=== PATIENT | female | born 1970 | race Caucasian/White ===

== ENCOUNTER 2017-06-29 14:18 | Emergency (ER) | payer BC ==
--- NOTE | 2017-06-29 15:37 | UC ---
Respiratory Complaint HPI - HPI Summary HPI Summary: 47 yo female ill for about 2 days with cough/runny nose/sore throat and headache myalgias throat pain the worse symptoms no cp or sob no n/v/d - History of Current Complaint Chief Complaint: UCRespiratory Stated Complaint: SORE THROAT EAR PAIN NAUSEA HEADACHE Time Seen by Provider: 06/29/17 15:27 Hx Obtained From: Patient Hx Last Menstrual Period: IUD Onset/Duration: Gradual Onset, Lasting Days Timing: Constant Severity Initially: Moderate Severity Currently: Moderate Pain Intensity: 5 Pain Scale Used: 0-10 Numeric Character: Cough: Nonproductive Associated Signs And Symptoms: Positive: Fever, Chills, Nasal Congestion - Allergies/Home Medications Allergies/Adverse Reactions: Allergies Allergy/AdvReac Type Severity Reaction Status Date / Time No Known Allergies Allergy Verified 06/29/17 14:40 Home Medications: Home Medications Albuterol HFA INHALER* [Ventolin HFA Inhaler*] 1 puff INH Q4H PRN 06/29/17 [ History Confirmed 06/29/17] Dextromethorphan-Phenylephrine [Daytime Cold & Flu Relief 10-5-325 mg] 1 cap PO Q8HR PRN 06/29/17 [History Confirmed 06/29/17] [id number]-[id number] [Nyquil Severe Cold/Flu 5-6.25-10-325 mg/15Ml] 1 liq PO QPM PRN 06/29/17 [History Confirmed 06/29/17] Venlafaxine ER (NF) [Effexor ER (NF)] 150 mg PO DAILY 06/29/17 [History Confirmed 06/29/17] PMH/Surg Hx/FS Hx/Imm Hx Previously Healthy: Yes - Surgical History Surgical History: Yes Surgery Procedure, Year, and Place: neck surgery 2007 - Family History Known Family History: Negative: Cardiac Disease, Hypertension, Diabetes - Social History Alcohol Use: Occasionally Substance Use Type: None Smoking Status (MU): Never Smoked Tobacco Review of Systems Constitutional: Fever, Chills, Fatigue Skin: Negative Eyes: Negative ENT: Sore Throat, Nasal Discharge, Sinus Congestion Respiratory: Cough Cardiovascular: Negative Gastrointestinal: Negative Genitourinary: Negative Motor: Negative Neurovascular: Negative Musculoskeletal: Negative Neurological: Negative Psychological: Negative Is Patient Immunocompromised?: No All Other Systems Reviewed And Are Negative: Yes Physical Exam Triage Information Reviewed: Yes Appearance: Well-Appearing, No Pain Distress, Well-Nourished Vital Signs: Initial Vital Signs Temp 98.2 F 06/29/17 14:43 Pulse 88 06/29/17 14:43 Resp 18 06/29/17 14:43 BP 130/89 06/29/17 14:43 Pulse Ox 98 06/29/17 14:43 Vital Signs Reviewed: Yes Eyes: Positive: Conjunctiva Clear ENT: Positive: Hearing grossly normal, Pharyngeal erythema, Nasal congestion, Nasal drainage, Tonsillar swelling, Uvula midline Neck: Positive: Supple, Nontender, No Lymphadenopathy Respiratory: Positive: Lungs clear, Normal breath sounds, No respiratory distress, No accessory muscle use Cardiovascular: Positive: RRR Musculoskeletal: Positive: ROM Intact, No Edema Neurological: Positive: Alert Psychological Exam: Normal Skin Exam: Normal UC Diagnostic Evaluation - Laboratory O2 Sat by Pulse Oximetry: 98 - normal/not hypoxic Respiratory Course/Dx - Course Course Of Treatment: Strep (+). influenza (-) - Differential Dx/Diagnosis Provider Diagnoses: strep throat Discharge - Discharge Plan Condition: Stable Disposition: HOME Prescriptions: Amoxicillin PO (*) [Amoxicillin 875 MG (*)] 875 mg PO BID #20 tab Patient Education Materials: Strep Throat (ED) Referrals: No Primary Care Phys,NOPCP [Primary Care Provider] - Additional Instructions: recheck in 3 days if not better flu test (-)
== END 2017-06-29 16:01 | disposition home or self-care (01) ==
LOC: UCEAST 14:18
DX: J02.0 Streptococcal pharyngitis (principal)
CPT/HCPCS: 87502; 87651; 99202; G0463

== ENCOUNTER 2018-02-04 08:26 | Emergency (ER) | payer BC ==
[2018-02-04 08:34] VITALS: BP 127/86
--- NOTE | 2018-02-04 08:44 | UC ---
Hand/Wrist HPI - HPI Summary HPI Summary: 48 y/o female presents to the urgent care c/o Rt wrist pain for the past 3 weeks. Pt reports she works in [employer] and she has to do heavy lifting. Pt reports pain had a sudden onset and is getting worse. Pain is 5/10 sometimes sharp w/ movement and mild numbness and tingling around the fingers. she noticed this morning mild swelling around wrist. Pt denies fever, SOB, chest pain, abdominal pain, N/V/D or trauma. She has been taking Ibuprofen/Tylenol PO to alleviate symptoms w/o any improvement. - History Of Current Complaint Chief Complaint: UCUpperExtremity Stated Complaint: R WRIST PAIN Time Seen by Provider: 02/04/18 08:43 Hx Obtained From: Patient Hx Last Menstrual Period: one year ago ?: No - on [place] Onset/Duration: Gradual Onset, Lasting Weeks - 3 weeks, Still Present, Worse Since - last week Severity Initially: Mild Severity Currently: Moderate Pain Intensity: 5 Pain Scale Used: 0-10 Numeric Character Of Pain: Sharp - w/ movement, Dull - at rest Aggravating Factor(s): Movement, Lifting, Internal/External Rotation, Twisting, Pulling Alleviating Factor(s): Rest, Ice, OTC Meds Associated Signs And Symptoms: Positive: Swelling, Numbness/Tingling. Negative : Redness, Bruising, Fever, Weakness Related History: Dominant Hand Right - Allergies/Home Medications Allergies/Adverse Reactions: Allergies Allergy/AdvReac Type Severity Reaction Status Date / Time No Known Allergies Allergy Verified 02/04/18 08:35 PMH/Surg Hx/FS Hx/Imm Hx Previously Healthy: Yes - Pt denies PMHX - Surgical History Surgical History: Yes Surgery Procedure, Year, and Place: neck surgery 2007 - Family History Known Family History: Positive: Cardiac Disease Negative: Hypertension, Diabetes - Social History Occupation: Employed Full-time Lives: With Family Alcohol Use: Occasionally Substance Use Type: None Smoking Status (MU): Never Smoked Tobacco Review of Systems Constitutional: Negative Skin: Negative Eyes: Negative ENT: Negative Respiratory: Negative Cardiovascular: Negative Gastrointestinal: Negative Genitourinary: Negative Motor: Negative Neurovascular: Negative Musculoskeletal: Decreased ROM - RT wrist, Other: - Rt wrist pain Neurological: Paresthesia - on Rt fingers Psychological: Negative Is Patient Immunocompromised?: No All Other Systems Reviewed And Are Negative: Yes Physical Exam - Summary Physical Exam Summary: Vital Signs Reviewed: Yes General: Well-Appearing, No Pain Distress, Well-Nourished - female w/o any apparent pain distress Eyes: Positive: Conjunctiva Clear - PERRLA, EOMI ENT: Positive: Normal ENT inspection, Hearing grossly normal, Pharynx normal, TMs normal, Uvula midline Neck: Positive: Supple, Nontender, No Lymphadenopathy Respiratory: Positive: Chest non-tender, Lungs clear, Normal breath sounds, No respiratory distress Cardiovascular: Positive: RRR, No Murmur, Pulses Normal, Brisk Capillary Refill Abdomen Description: Positive: Nontender, No Organomegaly, Soft. Negative: CVA Tenderness (R), CVA Tenderness (L) Bowel Sounds: Positive: Present Musculoskeletal: Positive: Strength Intact, Other: Neurological Exam: Normal Musculoskeletal: Positive: Wrist: the R wrist is without obvious asymmetry or deformity when compared to the L wrist. No surface trauma, open wounds, swelling , or obvious deformity. No overlying erythema or warmth. No bony crepitus. Point tenderness over the thenar eminence and ventral side of wrist. No scaphoid fullness or tenderness to direct palpation or axial load. Decreased ROM due to pain. Motor/sensory function of ulnar, radial, median nerves intact. Ulnar and radial pulses intact. Psychological Exam: Normal Skin Exam: Normal Triage Information Reviewed: Yes Vital Signs: Initial Vital Signs Temp 97.6 F 02/04/18 08:31 Pulse 81 02/04/18 08:31 Resp 18 02/04/18 08:31 BP 127/86 02/04/18 08:31 Pulse Ox 100 02/04/18 08:31 Hand/Wrist Course/Dx - Course Course Of Treatment: 48 y/o female presents to the urgent care c/o Rt wrist pain for the past 3 weeks. Pt reports she works in [employer] and she has to do heavy lifting. Pt reports pain had a sudden onset and is getting worse. Pain is 5/10 sometimes sharp w/ movement and mild numbness and tingling around the fingers. she noticed this morning mild swelling around wrist. Pt denies fever, SOB, chest pain, abdominal pain, N/V/D or trauma. She has been taking Ibuprofen/ Tylenol PO to alleviate symptoms w/o any improvement. Hx obtained. RT/LF wrist X-ray ordered. Impression: There was no fracture, dislocation, soft tissue swelling or FB noted. Pts wrist immobilized with a volar splint , wrist brace, , ulnar gutter splint, thumb spica splint. Advised RICE: Rest, Ice, elevation, NSAIDs, analgesia. There was no neurovascular compromise after splint/sling application; the splint was in good alignment and the pt had good sensation and capillary refill at the time of discharge. - Differential Dx/Diagnosis Differential Diagnosis/HQI/PQRI: Contusion, Fracture, Sprain, Strain, Tendonitis , Tenosynovitis Provider Diagnoses: 1- Acute Rt wrist pain. 2- Rt wrist De Quervain tenosynovitis Discharge - Sign-Out/Discharge Documenting (check all that apply): Patient Departure - D/c home All imaging exams completed and their final reports reviewed: Yes - Discharge Plan Condition: Stable Disposition: HOME Prescriptions: Ibuprofen TAB* [Motrin TAB* 800 MG] 800 mg PO Q6H PRN #30 tab PRN Reason: Pain Patient Education Materials: De Quervain Disease (ED) Referrals: [facility] [Provider Group] - 1 Day [facility] [place] [facility] [Outside] - 1 Week Additional Instructions: 1-Please take medications as directed to alleviate pain and swelling. 2-Please apply ice, keep your wrist immobilized with the splint. Avoid heavy lifting or repetitive movement w/ your hand. Inmerse your hand at time on ice water to decrease swelling. 3- You need Physical therapy to alleviate symptoms Please f/u with sports Medicine Orthopedic or PT referral in 1 week is not improvement of symptoms for further evaluation and treatment. - Billing Disposition and Condition Condition: STABLE Disposition: Home
--- NOTE | 2018-02-04 09:42 | RAD ---
Indication: Right wrist pain. 3 views of the wrist demonstrates no fracture. No other bone or joint abnormality is identified. IMPRESSION: NO FRACTURE OF THE WRIST IS NOTED.
== END 2018-02-04 09:59 | disposition home or self-care (01) ==
LOC: UCEAST 08:26
DX: M65.4 Radial styloid tenosynovitis [de Quervain] (principal); M25.531 Pain in right wrist
CPT/HCPCS: 99213; G0463